=== PATIENT | male | born 1950 | race Caucasian/White ===

== ENCOUNTER → 2016-02-29 | Outpatient (CLI) | payer OTHER ==
[~2016-02-29] MED LIST: ASPI81TA28 PO; CALC500C70 PO; CHOL100027 PO; DGRI80 IM; LPT10 PO; METO25TA56 PO; TADA10TA PO; VITA1CAP4 PO; vitamin
[2016-02-29 19:19] LABS: BLOOD UREA NITROGEN 19 mg/dl (7-18); BUN/CREATININE RATIO 18.6 (10-20)
[2016-02-29 19:23] LABS: PROSTATE SPECIFIC ANTIGEN 0.041 ng/ml (0.000-4.000)
--- NOTE | 2016-03-04 11:28 | CODING QUERY MEDICAL NECESSITY ---
SUPPORTING DIAGNOSIS NEEDED A supporting diagnosis is required for the test/procedure performed on this patient in order for us to be reimbursed by the patient's insurance. Please provide a supporting diagnosis for the following test/procedure listed below next to the test name along with your signature. *If there is no additional diagnosis for this patient that would support the following test/procedure please document that below next to the test/procedure. Test(s)/Procedure(s) that require a supporting diagnosis: DOS 02/28 * PSA DIAGNOSIS: Provider Signature: Date: Thank you Suzy Abreu Health Information Management Once completed, please kindly fax back to [phone] For questions please call [phone]
== END | disposition home or self-care (01) ==
LOC: C.LAB 17:10
PROVIDERS: ATTEND Urology
DX: Z11.59 Encounter for screening for other viral diseases (principal); N43.40 Spermatocele of epididymis, unspecified; C61 Malignant neoplasm of prostate

== ENCOUNTER → 2016-04-21 | Outpatient (CLI) | payer OTHER ==
[2016-04-21 11:08] LABS: BASO % 0.8 %; BASO ABS # 0.03 K/uL (0-0.2); COMPLETE YES; EOS % 2.1 %; HEMATOCRIT 41.1 % (42-52); LYMPH % 28.6 %; LYMPH ABS # 1.11 K/uL (1.2-3.4); MEAN CELL VOLUME 87.4 fL (80-100); MEAN CORPUSCULAR HEMOGLOBIN 30.4 pg (25-34); MEAN CORPUSCULAR HGB CONC 34.8 g/dl (32-36); MEAN PLATELET VOLUME 10.9 fL (7.4-10.4); MONO % 13.7 %; NEUT % 54.8 %; PLATELET COUNT 213 K/uL (130-400); WHITE BLOOD COUNT 3.88 K/uL (4.8-10.8)
[2016-04-21 12:06] LABS: BLOOD UREA NITROGEN 14 mg/dl (7-18); BUN/CREATININE RATIO 11.6 (10-20)
[2016-04-21 12:07] LABS: PROSTATE SPECIFIC ANTIGEN 0.045 ng/ml (0.000-4.000)
[2016-04-21 12:08] LABS: BLOOD UREA NITROGEN 14 mg/dl (7-18); BUN/CREATININE RATIO 11.3 (10-20); CALCIUM 9.4 mg/dl (8.5-10.1); CARBON DIOXIDE 28 mmol/L (21-32); CHLORIDE 103 mmol/L (98-107); CHOLESTEROL 173 mg/dl (0-200); GLUCOSE 86 mg/dl (70-99); POTASSIUM 4.4 mmol/L (3.5-5.1); SODIUM 139 mmol/L (136-145)
[2016-04-21 12:19] LABS: ALB/GLOB RATIO 1.1 (0.9-2); ALKALINE PHOSPHATASE 70 U/L (45-117); ALT/SGPT 29 U/L (12-78); AST/SGOT 24 U/L (15-37); CHOLESTEROL/HDL RATIO 2.9; HDL CHOLESTEROL 60 mg/dl; LDL CHOLESTEROL CALCULATED 95 mg/dl; TRIGLYCERIDES 91 mg/dl (0-150); VERY LOW DENSITY LIPOPROT CALC 18 mg/dl
== END | disposition home or self-care (01) ==
LOC: C.LAB 09:52
PROVIDERS: ATTEND Urology
DX: E78.5 Hyperlipidemia, unspecified (principal); C61 Malignant neoplasm of prostate

== ENCOUNTER → 2016-07-28 | Outpatient (CLI) | payer OTHER ==
[2016-07-28 17:15] LABS: BLOOD UREA NITROGEN 18 mg/dl (7-18); BUN/CREATININE RATIO 15.1 (10-20)
[2016-07-28 17:19] LABS: PROSTATE SPECIFIC ANTIGEN 0.078 ng/ml (0.000-4.000)
--- NOTE | 2016-08-01 12:41 | CODING QUERY MEDICAL NECESSITY ---
SUPPORTING DIAGNOSIS NEEDED Dr. Jaffe, A supporting diagnosis is required for the test/procedure performed on this patient in order for us to be reimbursed by the patient's insurance. Please provide a supporting diagnosis for the following test/procedure listed below next to the test name along with your signature. *If there is no additional diagnosis for this patient that would support the following test/procedure please document that below next to the test/procedure. Test(s)/Procedure(s) that require a supporting diagnosis: * [id number] PSA DIAGNOSIS: DATE OF SERVICE: 07/28/16 Provider Signature: Date: Thank you Ramone Tirado [facility] Information Management Once completed, please kindly fax back to [phone] For questions please call [phone]
== END | disposition home or self-care (01) ==
LOC: C.LAB 15:49
PROVIDERS: ATTEND Urology
DX: N52.9 Male erectile dysfunction, unspecified (principal); C61 Malignant neoplasm of prostate

== ENCOUNTER → 2017-01-05 | Outpatient (CLI) | payer OTHER ==
[~2017-01-05] MED LIST changes: -vitamin
[2017-01-05 17:08] LABS: BLOOD UREA NITROGEN 24 mg/dl (7-18); BUN/CREATININE RATIO 18.2 (10-20)
[2017-01-05 17:12] LABS: PROSTATE SPECIFIC ANTIGEN < 0.010 ng/ml (0.000-4.000)
== END | disposition home or self-care (01) ==
LOC: C.LAB 15:09
PROVIDERS: ATTEND Urology
DX: N52.9 Male erectile dysfunction, unspecified (principal)

== ENCOUNTER → 2017-03-31 | Outpatient (CLI) | payer OTHER | END | disposition home or self-care (01) | LOC: C.LAB 11:59 | PROVIDERS: ATTEND Urology | DX: C61 Malignant neoplasm of prostate (principal) ==

== ENCOUNTER → 2017-04-02 | Outpatient (CLI) | payer OTHER ==
[2017-04-02 13:41] VITALS: BP 107/71; PULSE 62; TEMP 36.6; O2SAT 95
--- NOTE | 2017-04-02 16:34 | Radiation Oncology Follow-Up ---
Radiation Oncology Follow-Up Date of Visit Apr 02, 2017. Reason For Visit 6 month follow-up and cancer survivorship care plan Radiation Completion Date 10/14/16 Diagnosis (1) Prostate CA Status: Acute Onset Date: 01/24/2015 Location: both lobes of the prostate Histology Subtype: adenocarcinoma Stage: lll Permanent Comment: Rising PSA, clinical stage T1c, pretreatment PSA 12.3 Status post ultrasound-guided biopsy 01/24/2015 revealing adenocarcinoma Garth 3+4, 4+3 and 4+4 Status post robotic prostatectomy 04/17/2015 2 separate tumors on the left 4+4 and on the right 3+3 Seminal vesicle invasion, perineural invasion, and extraprostatic extension left posterior base Stage pT3 pN0 M0 Post prostatectomy rising PSA 0.078 Initiation of Firmagon 120 mg 07/30/2016, 4-6 month recommendation Status post completion of IMRT/IGRT VMAT radiation therapy 10/14/2016. He received 6840 cGy Last Edited By: Shante Anderson on Oct 22, 2016 08:15 History of Present Illness Mr. Rondon is without a family history of prostate cancer. He is been followed with screening prostatespecific antigens. These were under 1 until 2011 with a reading of 2.0 to. In 04/20/2012 the prostate-specific antigen jumped to 5.78. This was repeated on 05/19/2012 at 4.71. Because of persistent prostate-specific antigen elevation Dr. Jaffe suggested ultrasound-guided biopsies. These biopsies were performed on . A total of 14 biopsies were taken and all were benign. Case: [id number]. Patient continued to have follow-up prostate-specific antigens. On 12/03/2012 the prostate-specific antigen increased to 6.19. This was double checked on 01/10/2013 and remained elevated at 5.96. On 07/01/2013 the prostate-specific antigen was 5.89. On 05/16 prostate-specific antigen once again jumped to 8.9 to and finally on 12/16/2014 the prostate-specific antigen was 12.3. Patient had a second ultrasoundguided biopsy on 01/24/2015. Again a total of 14 biopsies were taken that include the left and right base, left and right mid gland and left right apex. One biopsy each from the left and right anterior were taken. Biopsies from the right base, right mid, right apex, right anterior and left anterior were all benign. One of 2 biopsies in the left base were positive for adenocarcinoma [place] grade 4+3 involving 50% of the core sample with no perineural invasion seen. 2 biopsies from the left mid gland were positive. One was positive within at no carcinoma [place] grade 4+3 involving 15% of the core sample and the second was positive with a [place] score 3+4 involving 60% of the core sample. No perineural invasion was seen. 2 biopsies from the left apex were positive. One with a [place] grade 4+4 involving 40% of the core sample and a second Garth grade 4+3 involving 75% of core sample. No perineural infiltration was seen. Therefore wall a total of 5 biopsies out of 14 positive all on the left. One was [place] grade 3+4. 3 were Garth grade 4+3 and 1 was Garth grade 4+4. Case: [id number]. Patient underwent a staging workup. This consisted have a whole-body bone scan on 02/07/2015. There was no evidence of skeletal metastatic disease. He also underwent a CT scan of the abdomen and pelvis on 02/07/2015. This revealed multiple bilateral inguinal surgical clips. A stable 8 mm sclerotic focus was noted within the proximal right femur likely a bone island. There were few bilateral renal hypodense lesions the majority subcentimeter in size. The largest was in the left kidney measuring 1.7 cm that was stable. There was no evidence of retroperitoneal or pelvic lymphadenopathy. There was evidence of a heterogeneous and mildly enlarged prostate gland but no evidence of extra prostatic extension appreciated. Patient discussed the findings of his biopsy with Dr. Jaffe. He is scheduled to return to see him on March 02 to discuss the role of robotic prostatectomy. We were asked to see the patient in referral today to discuss the role of definitive radiation. The patient went on to have a robotic prostatectomy on 04/17/2015. Pathology revealed 2 separate tumors. Tumor #1 adenocarcinoma Garth score 4+4. This was on the left side of the prostate. Tumor #2 adenocarcinoma with a Garth score 3+3. This is on the right side of the prostate. There was extraprostatic extension at the left posterior base. There was seminal vesicle invasion. All margins were negative. There was no lymphovascular invasion. He did have perineural invasion. His AJCC pathologic staging was pT3b pN0. He's been followed closely since his prostatectomy. He has had a steady improvement in his urination. PSAs have been followed. June 06, 2015 PSA was 0.020. On 08/09/2015 the PSA was 0.012. On 12/03/2015 the PSA was 0.016. On 02/29/2016 the PSA was 0.041. With this finding she was referred to our office discuss radiation therapy. He underwent radiation therapy. This was completed 10/14/2016. He received 6840 cGy utilizing IMRT/IGRT, VMAT. Interim History He is been doing well over the past 6 months. Urinary status is stable. He gave an AUA score of 4. He completed an expanded prostate cancer index composite for clinical practice and gave a score of 0 of 12 and urinary incontinence symptoms. He gave a score of one of 12 and urinary irritation. He gave a score of 0 of 12 and bowel symptoms. He gave a score of 6 of 12 and sexual symptoms. He gave a score of 6 of 12 in hormonal vitality symptoms. His total was 13 of 60. He had a recheck PSA 03/31/2017. In that was less than 0.010. Allergies Coded Allergies: No Known Allergies (Unverified , 01/15/16) Home Medications Scheduled Aspirin (Aspirin Ec), 81 MG PO QAM Atorvastatin (Lipitor), 10 MG PO QAM Calcium/Vitamin D (Os-Cody 500 Plus D), 1 TAB PO DAILY Cholecalciferol (Vitamin D 1000 Unit), 1,000 INTER.UNIT PO DAILY Tadalafil (Cialis), 5 MG PO DAILY Vitamin E (E 1000), 1 CAP PO DAILY Scheduled PRN Metoprolol Tartrate (Lopressor) (Lopressor), 25 MG PO BID PRN for ATRIAL FLUTTER Review of Systems Gastrointestinal: Symptoms: WNL Respiratory: Symptoms: WNL Urinary: Comments: occasional weak stream Skin: Symptoms: No Problems Physical Exam Vital Signs Date Time Temp Pulse Resp B/P (MAP) Pulse Ox O2 Delivery O2 Flow Rate FiO2 04/02/17 13:41 36.6 62 16 107/71 95 Fatigue: None General Appearance: no apparent distress Eyes: normal inspection, EOMI ENT: normal ENT inspection, hearing grossly normal Respiratory/Chest: lungs clear, no respiratory distress, no accessory muscle use Cardiovascular: regular rate, rhythm, no gallop, no murmur Abdomen: non tender, soft Extremities: no pedal edema Neurologic/Psychiatric: no motor/sensory deficits, alert, normal mood/affect Skin: warm/dry Lymphatic: no adenopathy Pain Management Patient Reports Pain: No Pain Location: Breast Patient Preferred Pain Scale: 0 - 10 Initial Pain Intensity: 0.0 Pain Management Plan He gave a pain level of 0 therefore requires no pain management. Laboratory Laboratory Results: were reviewed, and pertinent findings noted in HPI Laboratory Comments: Reviewed in the interim history. Pathology Pathology Results: not applicable Imaging Imaging Studies: not applicable Assessment & Plan Plan: Continue regular follow-up with Dr. Jaffe. She has a recheck appointment with him in July. An order was given for him to have a PSA with our office in January. He'll have a follow-up visit following the PSA. Today he brought information to review in regards to possible biochemical failure after salvage radiation therapy. He had done several calculations and looked of 5 different studies. The end result is a 50% possibility of recurrence. We discussed the need for continued surveillance. He'll have a PSA in July. He is pleased that currently the PSA levels are low. He is concern in the event of the rise in the PSA. We discussed that treatment would be hormone suppression. He had multiple side effects to the medication and is concerned that he would have difficulty tolerating hormone suppression. For now we'll continue to follow the PSAs which have been excellent. Total Time In Follow-Up I spent 25 minutes speaking to the patient performing examination. I spent 15 minutes reviewing information in completing this note. Copy To Bertin Cooper M.D.; Sandeep Jaffe MD, Urology
== END | disposition home or self-care (01) ==
LOC: C.ONC 13:28
PROVIDERS: ATTEND Urology
DX: Z08 Encounter for follow-up examination after completed treatment for malignant neoplasm (principal); Z92.3 Personal history of irradiation; Z85.46 Personal history of malignant neoplasm of prostate

== ENCOUNTER → 2017-05-26 | Outpatient (CLI) | payer OTHER ==
[~2017-05-26] MED LIST changes: -DGRI80 IM
[2017-05-26 12:30] LABS: ALBUMIN 3.6 gm/dl (3.4-5.0); ALT/SGPT 24 U/L (12-78); AST/SGOT 23 U/L (15-37); BLOOD UREA NITROGEN 16 mg/dl (7-18); CALCIUM 9.1 mg/dl (8.5-10.1); CARBON DIOXIDE 27 mmol/L (21-32); CREATININE 0.96 mg/dl (0.60-1.40); GLUCOSE 81 mg/dl (70-99); POTASSIUM 4.2 mmol/L (3.5-5.1); SODIUM 138 mmol/L (136-145)
[2017-05-26 12:41] LABS: ALKALINE PHOSPHATASE 95 U/L (45-117); CHOLESTEROL 163 mg/dl (0-200); LDL CHOLESTEROL CALCULATED 96 mg/dl
== END | disposition home or self-care (01) ==
LOC: C.LAB 10:09
PROVIDERS: ATTEND Internal Medicine Geriatric Medicine
DX: E78.5 Hyperlipidemia, unspecified (principal); N52.9 Male erectile dysfunction, unspecified; C61 Malignant neoplasm of prostate; I48.92 Unspecified atrial flutter

== ENCOUNTER → 2017-06-30 | Outpatient (CLI) | payer OTHER | END | disposition home or self-care (01) | LOC: C.MAMM 07:51 | PROVIDERS: ATTEND Internal Medicine Geriatric Medicine | DX: M81.0 Age-related osteoporosis without current pathological fracture (principal); C61 Malignant neoplasm of prostate ==

== ENCOUNTER → 2017-09-15 | Outpatient (CLI) | payer OTHER ==
[2017-09-15 19:22] LABS: BLOOD UREA NITROGEN 24 mg/dl (7-18); CREATININE 1.21 mg/dl (0.60-1.40)
== END | disposition home or self-care (01) ==
LOC: C.LAB 17:58
PROVIDERS: ATTEND Urology
DX: N52.9 Male erectile dysfunction, unspecified (principal)

== ENCOUNTER 2024-01-20 05:15 | Observation (INO) ==
--- NOTE | 2023-12-08 12:09 | PAT Medication Instructions ---
Medication Instructions Date of Service December 08, 2023 Home Medications Medication Instructions Recorded alendronate 70 mg tablet See Rx Instructions .Route 11/17/22 .COMPLEX #12 tabs atorvastatin 10 mg tablet 10 mg PO QAM #90 tabs 12/03/23 cholecalciferol (vitamin D3) 25 mcg (1,000 unit) tablet 1,000 unit PO QAM calcium carbonate (Calcium 600) 600 mg PO QAM alendronate 70 mg tablet See Rx Instructions metoprolol succinate 25 mg tablet,extended release 24 hr 25 mg PO QAM atorvastatin 10 mg tablet 10 mg PO QAM apixaban 5 mg tablet (Eliquis) 5 mg PO BID ASK your prescriber and surgeon apixaban 5 mg tablet (Eliquis) 5 mg PO BID (in order to get spinal anesthesia- will need to hold Eliquis/apixaban at least 72 hours prior to surgery) alendronate 70 mg tablet See Rx Instructions DO NOT take the morning of surgery cholecalciferol (vitamin D3) 25 mcg (1,000 unit) tablet 1,000 unit PO QAM calcium carbonate (Calcium 600) 600 mg PO QAM Take morning of surgery With a small sip of water, OTHERWISE NOTHING TO EAT OR DRINK AFTER MIDNIGHT: metoprolol succinate 25 mg tablet,extended release 24 hr 25 mg PO QAM atorvastatin 10 mg tablet 10 mg PO QAM Other Notes If you have any questions please call us at [phone] or [phone] or [phone] or [phone]
--- NOTE | 2023-12-14 08:26 | Anesthesiology Consultation ---
Date of Service December 14, 2023 Assessment & Plan (1) Encounter for pre-operative examination: - apixaban instructions: patient instructed he will need to contact prescribing provider to check if he can hold apixaban for 3 days to receive neuraxial anesthesia. - cardiology office visit 11/16/23: "...aortic root and ascending aorta dilation along with moderate aortic valve regurgitation...scheduled to undergo left total knee replacement...no active cardiac symptoms...no current indication for intervention and recommended continued surveillance...acceptable cardiac risk for planned left total knee replacement and apixaban can be held for 2 days prior to surgery...follow up in 1 year..." - Outpatient joint assessment: Patient is currently scheduled for inpatient pathway. If re-evaluated and patient/surgeon requests outpatient pathway, patient is not ideal candidate for outpatient joint program from anesthesia standpoint. Chart Review Chart Review: Acceptable Risk for Surgery and Patient seen in Pre Admission Testing Teaching & Discussion Pre-Anesthesia Teaching/Discussion Notes: Instructed NPO after midnight before surgery, except medications with 15 cc of water. Medication instructions provided according to the PAT guidelines. History Surgery Operation Date: 01/12/24 07:00 Proposed Procedures p Left Total Knee Arthroplasty - Pipo Arguello MD Height/Weight Height: 6 ft Weight: 74.7 kg Allergies Allergy/AdvReac Type Severity Reaction Status Date / Time Antisera AdvReac Intermediate Swelling/It Verified 12/08/23 07:36 mendy Medications Home Medications Medication Instructions Recorded Confirmed Last Taken cholecalciferol (vitamin D3) 25 1,000 unit PO QAM 03/28/18 12/08/23 08/20/18 mcg (1,000 unit) tablet calcium carbonate (Calcium 600) 600 mg PO QAM 08/20/18 12/08/23 08/20/18 metoprolol succinate 25 mg 25 mg PO QAM 08/24/23 12/08/23 Unknown tablet,extended release 24 hr atorvastatin 10 mg tablet 10 mg PO QAM #90 tabs 12/03/23 12/08/23 Unknown apixaban 5 mg tablet (Eliquis) 5 mg PO BID 12/08/23 12/08/23 Unknown Additional Notes: On drug holiday from alendronate. Past Medical History Medical History (Updated 12/14/23 @ 08:47 by Bonnie M. Onink, PA-C) Aortic insufficiency Ascending aorta dilation [facility] Atrial flutter, paroxysmal hx - ablation [facility] Bilateral tinnitus Dupuytrens contracture History of prostate cancer surgery xrt HTN (hypertension) controlled, stable per pt Hyperlipemia Left knee DJD Mitral regurgitation [facility] Osteoarthritis Sensorineural hearing loss (SNHL) of both ears Varicose veins of legs Patient denies h/o stroke, seizures, heart attack, heart failure, DM, blood clots/DVTs or blood transfusions. Exercise / Class Metabolic Activity II 4-5 Yardwork/Stairs/Walk up hill (denies chest discomfort or shortness of breath with one flight of stairs) Past Family History Family History Brother Non-Hodgkin lymphoma Heart disease Myocardial infarction Father Heart disease Myocardial infarction Mother COPD (chronic obstructive pulmonary disease) Lung cancer Sister Heart disease Myocardial infarction Denies family history of Ovarian cancer Prostate cancer Breast cancer Colorectal cancer Past Surgical History Surgical History (Updated 12/14/23 @ 08:24 by Bonnie Vidales PA-C) History of cardiac radiofrequency ablation (~01/2022) History of colonoscopy 05/2016 repeat 10 yrs History of prostatectomy for cancer, had XRT Hx of inguinal hernia repair Hx of tonsillectomy S/P ORIF (open reduction internal fixation) fracture left humeral fracture Past Anesthesia History No Hx of Anesthesia Complications and No Family Hx of Anesthesia Complications History of PONV No Hx of PONV and No Hx of Motion Sickness Social History Smoking Status: Never smoker Do You Dip or Chew Tobacco: No Hx Alcohol Use: Yes Alcohol type: beer alcohol intake frequency: 0-2 drinks per day Hx Substance Use: Yes substance use type: marijuana (-advised) Last Used Substance: Unknown Last Used Substance Other:: Advised Review of Systems Snoring, denies witnessed apneas. Patient denies chest pain, shortness of breath, dyspnea on exertion, reflux, fever, chills, cough, wheezing, or palpitations. Physical Exam Vital Signs Vitals BP 102/68 P 64 TEMP 97.7 SP02 98% on RA RESP 18 Physical Patient resting comfortably in chair in no acute distress, alert and oriented, responding appropriately throughout visit Full cervical extension range of motion without pain TMD 3.5 finger breadths Mallampati Score 2 Dentition: several caps/crowns, denies chipped or loose teeth, implants or bridges Lungs: normal respiratory effort. Good air movement, clear throughout to auscultation, no adventitious breath sounds Cardiac: regular rate and rhythm, no murmurs noted Carotid arteries: negative bruit bilat Lab Results Anesthesia Preop Results Results Anesthesia Widget: WBC 4.11 K/ul (4.8-10.8) L 12/14/23 Hgb 12.2 g/dl (14.0-18.0) L 12/14/23 Hct 35.8 % (42.0-52.0) L 12/14/23 Plt 196 K/uL (130-400) 12/14/23 Na 137 mmol/L (136-145) 12/14/23 K 3.7 mmol/L (3.5-5.1) 12/14/23 Cl 103 mmol/L (98-107) 12/14/23 CO2 28 mmol/L (21-32) 12/14/23 BUN 21 mg/dl (6-23) 12/14/23 Creat 1.04 mg/dl (0.6-1.4) 12/14/23 Glucose Level 75 mg/dl (70-99(Fasting)) 12/14/23 PT 10.6 Seconds (9.0-12.0) 12/14/23 PTT 28 Seconds (21-31) 12/14/23 INR 1.0 (0.9-1.1) 12/14/23 Blood Type A Positive 12/14/23 Antibody Screen NEGATIVE 12/14/23 Testing Electrocardiogram Date: 12/14/23 NSR, rate 60 bpm Chest X-Ray Date: 12/14/23 No acute process. Echocardiogram Date: 11/16/23 EF 63% Normal LV wall motion Aorta dilated with a maximal dimension of 4.6 cm Moderate aortic valve regurgitation Mild mitral regurgitation Mild pulmonic regurgitation Other Testing PET scan 03/11/23 1. Prior prostatectomy with bilateral inguinal keyana dissection. 2. No pathologically enlarged lymph nodes or suspicious tracer uptake identified to suggest recurrent disease. 3. Lingular and right middle lobe mucous plugging with tree-in-bud nodules suggestive of a nonspecific infectious or inflammatory pneumonitis such as Mycobacterium avium. 4. Fusiform aneurysmal dilation of the ascending thoracic aorta, 4.7 cm. 5. Incidental findings as above.
--- NOTE | 2024-01-16 10:50 | History & Physical Report ---
Date of Service January 16, 2024 Assessment & Plan (1) Left knee DJD: 73-year-old male avid biker with advanced left knee DJD. He has failed conservative treatment. He now like to proceed with left knee replacement. Plan: Working to take him to the operating room and do a left knee replacement. The risks of Mente this procedure were explained. He knows to hold his Eliquis 3 days preop. He is planned to be discharged to home using home health. Will start him back on his Eliquis 24 hours postop. (2) Paroxysmal atrial fibrillation: (3) Prostate CA: (4) HTN (hypertension): (5) History of prostate cancer: History of Present Illness Chief Complaint: . Persistent left knee pain and discomfort. Primary Care Provider: Harley Rizvi DO . The patient is a 73-year-old gentleman who I been following for the past couple years for left knee arthritis. He has been through extensive conservative treatment over the years which have become less successful over time. Pain has become more debilitating. He is an avid biker and having difficulty maintaining his biking due to the pain. Describes global pain in the knee. Increased with walking. No groin pain. Last shots did not help much. Allergies Allergy/AdvReac Type Severity Reaction Status Date / Time Antisera AdvReac Intermediate Swelling/It Verified 12/08/23 07:36 mendy Home Medications Medication Instructions Recorded Confirmed Type cholecalciferol (vitamin D3) 25 1,000 unit PO QAM 03/28/18 12/08/23 History mcg (1,000 unit) tablet calcium carbonate (Calcium 600) 600 mg PO QAM 08/20/18 12/08/23 History metoprolol succinate 25 mg 25 mg PO QAM 08/24/23 12/08/23 History tablet,extended release 24 hr atorvastatin 10 mg tablet 10 mg PO QAM #90 tabs 12/03/23 12/08/23 Rx apixaban 5 mg tablet (Eliquis) 5 mg PO BID 12/08/23 12/08/23 History Past Med/Surg History Problem List Ganglion cyst of finger of right hand Abnormal CT scan of lung Gross hematuria 07/11/22 Hyperlipidemia History of prostate cancer Ascending aorta dilatation Left knee DJD Paroxysmal atrial fibrillation Impotence, organic (Acute) Mitral regurgitation (Acute) Osteoarthritis (Acute) Osteoporosis (Acute) 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) Prostate CA (01/24/15) HTN (hypertension) (Chronic) Medical History Aortic insufficiency Osteoarthritis Ascending aorta dilation [facility] Left knee DJD History of prostate cancer surgery xrt Mitral regurgitation [facility] Hyperlipemia HTN (hypertension) controlled, stable per pt Bilateral tinnitus Sensorineural hearing loss (SNHL) of both ears Dupuytrens contracture Varicose veins of legs Atrial flutter, paroxysmal hx - ablation [facility] Surgical History Hx of tonsillectomy Hx of inguinal hernia repair History of cardiac radiofrequency ablation (~01/2022) S/P ORIF (open reduction internal fixation) fracture left humeral fracture History of colonoscopy 05/2016 repeat 10 yrs History of prostatectomy for cancer, had XRT Family History Brother Non-Hodgkin lymphoma Heart disease Myocardial infarction Father Heart disease Myocardial infarction Mother COPD (chronic obstructive pulmonary disease) Lung cancer Sister Heart disease Myocardial infarction Denies family history of Ovarian cancer Prostate cancer Breast cancer Colorectal cancer Social History Smoking Status: Never smoker Second Hand Exposure: No; Do You Dip or Chew Tobacco: No; Tobacco Cessation Education Requested by Patient: No Hx Alcohol Use: Yes Alcohol type: beer Alcohol Intake Frequency: 4 or More x per/Week Hx Substance Use: Yes Last Used Substance: Unknown Last Used Substance Other:: Advised Preferred Language: [place] Communication Ability: Effective Visual Impairment: Limited Hearing Ability: Normal Manager Printing Required: No Beliefs That Will Affect Care: None marital status: Current Living Situation: Spouse current occupational status: retired How many Children do You have: 2 Other Information That Helps Us Care for You: No Feels Safe at Home: Yes Safety Concerns: Feels Safe At This Time Childhood Exposure to Second-Hand Smoke: Yes Diet: regular caffeine: Yes Dental Care, Regularly: Yes Physical Activity Frequency: 3-4 Times per Week Seatbelt Use: always Sunscreen Use: Yes Do you think of yourself as: straight/heterosexual Assistive Devices: Glasses Review of Systems All systems reviewed & are unremarkable except as noted in HPI & below. Physical Exam . Physical examination reveals a pleasant healthy-appearing middle-age male. Examination of the left knee reveal patient ambulates independently. Fairly minimal limp. Got varus alignment to his knee. Tender over the medial joint line. He is got some bony hypertrophy medially. Range of motion about 5 degrees short of full extension to 125 years of flexion. No particular pain with hip motion. There is no instability. Constitutional WD/WN, vitals as above Neck trachea midline, no thyromegaly Respiratory normal respiratory effort, lungs clear to auscultation Cardiovascular RRR, no murmur, no edema Gastrointestinal (Abdomen) normal bowel sounds, soft, nontender, no hepatosplenomegaly Results & Data Results & Data Laboratory Results . Diagnostic Findings . X-rays of the left knee were reviewed. Shows advanced medial compartment arthritis. Is got complete loss of medial joint space on the 40 degree flexion films. PG Care Time/CCT Total # of Minutes Spent Total Time Spent with Patient: Total time spent is greater than 50% in coordination of care (as documented) at patient's floor/unit and/or counseling patient: Coding Level of Care Code None Diagnoses Left knee DJD M17.12 Paroxysmal atrial fibrillation I48.0 Prostate CA C61 HTN (hypertension) I10 History of prostate cancer Z85.46
[2024-01-20] MEDS: LR 500ML BOLUS, THEN 15ML/HR IV SCH (06:00)
[2024-01-20] MEDS: ACETAMINOPHEN 500 MG TAB PO SCH ×2 (06:21→14:02)
[2024-01-20] MEDS: LR 60ML/HR IV SCH (06:21)
[2024-01-20] MEDS ORDERED: BUPIVACAINE 0.5 % 5 MG/1 ML PF 10ML VIAL ONE (06:21)
[2024-01-20] MEDS: CeleBREX 200 MG CAP PO SCH (06:21)
[2024-01-20] MEDS: METOCLOPRAMIDE HCL 10 MG TABLET PO SCH (06:21)
[2024-01-20] MEDS ORDERED: BUPIVACAINE 0.25% PF 30 ML VIAL ONE (06:21)
[2024-01-20] MEDS: FAMOTIDINE 20 MG TAB PO SCH (06:21)
[2024-01-20] MEDS: dexAMETHasone**PF** 10 MG/ML VIAL IV SCH (06:22)
[2024-01-20] MEDS ORDERED: MIDAZOLAM HCL 1 MG/ML 2ML VIAL ONE ×2 (06:43)
[2024-01-20] MEDS ORDERED: LIDOCAINE 2% 2 ML VIAL/AMP(20MG/ML) INFIL ONE (06:43)
[2024-01-20] MEDS ORDERED: PROPOFOL IV EMULSION 10 MG/ML 20 ML VIAL IV ONE (06:43)
--- NOTE | 2024-01-20 06:45 | History & Physical Bridge Note ---
Date of Service January 20, 2024 History & Physical Bridge Note I have examined the patient, reviewed the History & Physical and in the interval since the performance of the History & Physical I have noted the following changes of clinical significance: no changes noted
[2024-01-20] MEDS: ceFAZolin 2000MG 2,000 MG/15 ML SYR IV SCH (06:59)
[2024-01-20] MEDS ORDERED: ATROPINE SULFATE 0.1 MG/ML 10ML SYR IV PRN (07:14)
[2024-01-20] MEDS ORDERED: ePHEDrine sulfate 50 MG/ML AMP IV PRN (07:14)
[2024-01-20] MEDS ORDERED: ONDANSETRON INJ 2 MG/ML 2 ML VIAL IV PRN ×2 (07:14→10:12)
[2024-01-20] MEDS ORDERED: fentaNYL citrate PF 100 MCG/2 ML VIAL IV PRN (07:14)
[2024-01-20] MEDS ORDERED: PHENYLEPHRINE 100MCG/ML 5ML SYR ONE (07:28)
[2024-01-20] MEDS: ORTHO JOINT ANESTHETIC ONE (07:36)
[2024-01-20] MEDS: ROPIV 0.5% 246mg, Ketorolac 30mg, EPINEPHrine 0.5mg in NSS INFIL SCH (07:37)
[2024-01-20] MEDS ORDERED: GLYCOPYRROLATE 0.2 MG/ML VIAL ONE (07:51)
[2024-01-20] MEDS: TRANEXAMIC ACID 1,000 MG **IV Intra-op IV SCH (07:53)
[2024-01-20] MEDS ORDERED: ePHEDrine sulfate 50 MG/5 ML SYR ONE (08:53)
--- NOTE | 2024-01-20 09:09 | Operative Report ---
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 He extensive grade 4 [id number] disease and eburnation of the entire medial compartment. He had a varus deformity to his knee. Moderate-sized joint effusion. Specimens Left knee sent for pathology. Anesthesia Type Spinal MAC Complications none Disposition Accompanied Patient To Recovery: No Indications Patient is a 73-year-old fairly active gentleman whose had a long history of left knee pain discomfort is gotten worse over the past 5 years. He has been through extensive conservative treatment which became less successful over time. His pain was limiting his lifestyle and he elected proceed with total knee arthroplasty. Description of Procedure Operative implants consists of: 1. Biomet Vanguard size 75 left posterior stabilized femoral component. 2. Biomet size 83 tibial tray. 3. 12 mm posterior stabilized polyethylene insert. 4. 34 x 8-1/2 all poly patella. The patient was taken to the op room, identified, placed on the operative table in the supine position. All conductors were appropriately padded. IV antibiotics tried by anesthesia team. A spinal anesthetic and adductor canal block had been Weida in the holding area. A left thigh turn was then placed. The left lower extremity was then prepped and draped in usual sterile fashion. The left leg was elevated and exsanguinated with use of an Esmarch and the turn was placed at 300 mmHg. An anterior approach left knee was then performed to longitudinal incision centered over the patella. Sharp dissection was Through subcutaneous tissue down to the extensor mechanism. A medial parapatellar arthrotomy incision was made. Some subperiosteal dissection was carried out medially. The fat pad was resected beneath patella tendon. The lateral patellofemoral ligament was released. Patella subluxated laterally knee was flexed. The osteophytes taken off distal femur. The ACL and PCL were then released from distal femur and the tibia subluxate anteriorly. The external treatment LYMErix was then placed on the anterior face the tibia and adjusted 14 mm medially. The proximal tibial cut was made remove out of millimeter bone from the most efficient aspect medial tibial plateau. Some osteophytes taken off medially. The tibia sized to a size 83. Attention was then drawn to the femur. The distal femur tendon with a sharp drill. Intramedullary canal was suction. A left 6 degree valgus cutting guide was placed. The distal femoral cutting block was pinned in place. Distal femoral cut was made to take an additional 3 mm of bone off distal femur. The femur was then sized to a size 75. The AP cutting block was pinned parallel to the epicondylar axis which was 4 degrees of external rotation. The anterior cut, anterior chamfer, posterior cut, posterior chamfer cuts were made. The box cutting guide was placed and adjusted slightly lateral and the box cut was made. The knee was flexed. The remnants of the medial and lateral menisci were excised. The osteophytes taken off the posterior aspect the femur. A trial femoral component was placed. The tibial tray was pinned in Rhonda external rotation and the drill and stem point to use great defect in proximal tibia for the tibial tray. Knee was then trialed and the 12 mm insert fit most appropriately. Attention drawn the patella. The patella was cleaned of all soft tissues. Patella thickness measured 25 mm in thickness was cut down to 14. It was sized to a size 34 patella. The lug holes were drilled for the 34 patella. The lateral osteophytes removed. Patella button was placed. Knee was taken through range of motion patella tracked nicely with no thumbs test. Attention was then drawn toward placing the permanent components. All trial components were removed. A bone plug was placed in the distal femur limit blood loss. A double batch of Palacos G cement was mixed. A Biomet Vanguard size 75 right posterior stabilized femoral component, a size 83 tibial tray, a 12 mm posterior Byce polyethylene insert, and a 34 x 8 and half all poly patella then cemented in place. The knee was brought out into full extension until the cement hardened. Final cement check was performed. The pericapsular tissues were injected with total of 100 cc of Ortho mix. Patient did receive 1 g tranexamic acid. The tourniquet was let down for final tourniquet time of 62 minutes. Hemostasis assured use electrocautery. Extensor Meclomen closed with combination 1 PDS suture #1 Vicryl suture in a [id number] fashion. Extensor Meclomen checked and found to be intact. The subcutaneous tissues then closed with 2 Dexon suture in a buried interrupted fashion and the skin was closed with skin mi. Leg was then cleaned and dried and a sterile dressing was Xeroform, 4 x 4's, sterile ABD pads, sterile cast padding, Jason bandage were applied. Patient then transferred to the recovery room in stable condition. Patient tolerated the procedure well and there were no complications. I attest to the content of the Intraoperative Record and any orders documented therein. Any exceptions are noted below.
[2024-01-20] MEDS ORDERED: ALUMINUM/MAGNESIUM SUSP 30 ML UDC PO PRN (10:12)
[2024-01-20] MEDS ORDERED: HYDROmorphone INJ 0.5 MG/0.5 ML SYR IV PRN (10:12)
[2024-01-20] MEDS ORDERED: METOCLOPRAMIDE HCL INJ 5 MG/ML 2 ML VIAL IV PRN (10:12)
[2024-01-20] MEDS ORDERED: NALOXONE HCL 0.4 MG/1 ML VIAL/CARP IV PRN (10:12)
[2024-01-20] MEDS ORDERED: bisacodyL 10 MG SUPP PR PRN (10:12)
[2024-01-20] MEDS ORDERED: MAGNESIUM HYDROXIDE SUSP 30 ML UDC PO PRN (10:12)
--- NOTE | 2024-01-20 10:33 | Anesthesiology Progress Note ---
Date of Service January 20, 2024 Anesthesia Post Procedure Vital Signs Vital Signs: Temp Pulse Pulse Resp BP BP Pulse Ox 01/20/24 09:59 36.4 C L 83 16 100/62 96 01/20/24 09:40 36.3 C L 81 13 99/63 L 96 01/20/24 09:30 81 13 96/61 L 97 01/20/24 09:20 83 18 95/64 L 96 01/20/24 09:10 82 21 101/63 100 01/20/24 09:01 36.3 C L 87 16 94/56 L 99 01/20/24 05:56 36.3 C L 68 20 113/79 99 O2 Del Method O2 Flow Rate 01/20/24 09:59 Room Air 01/20/24 09:40 Room Air 01/20/24 09:30 Room Air 01/20/24 09:20 Room Air 01/20/24 09:10 Oxymask 4 01/20/24 09:01 Oxymask 6 01/20/24 05:56 Room Air Pain Intensity Left Knee: Pain Intensity: 3 Transfer of Care Handoff Completed per policy Notes Mental Status: alert / awake / arousable Patient Amnestic to Procedure: Yes Nausea / Vomiting: adequately controlled Pain: adequately controlled Airway Patency, RR, SpO2: stable & adequate BP & HR: stable & adequate Hydration State: stable & adequate Neuraxial Anesthesia: was administered and sensory block is resolving Anesthetic Complications: no major complications apparent and Pt Satisfied with anesthetic care
--- NOTE | 2024-01-20 11:04 | XRay Report ---
XR knee LT 1 or 2V routine CLINICAL HISTORY: Surgical Post Op COMPARISON: Left knee radiographs April 13, 2023. FINDINGS: Alignment of the total left knee arthroplasty is anatomic. There is no periprosthetic frac ture or unexpected radiopaque foreign body. There are skin mi. IMPRESSION: Expected findings following total left knee arthroplasty. ACT 112: Negative or not required by law. Electronically signed by: Zana Saldivar M.D. 01/20/2024 11:02 AM
[2024-01-20] MEDS: KETOROLAC TROMETHAMINE 15 MG/ML VIAL IV SCH (12:21)
[2024-01-20] MEDS: ASCORBIC ACID 500 MG TAB PO SCH (16:37)
[2024-01-20] MEDS: ceFAZolin 1000MG 1,000 MG/7.5 ML SYR IV SCH (16:37)
[2024-01-20] MEDS: TRANEXAMIC ACID / 0.7% NACL 1,000 MG/100 ML BAG IV SCH (16:39)
[2024-01-20] MEDS: DOCUSATE SODIUM 100 MG CAP PO SCH (20:56)
[2024-01-20] MEDS: SENNA 8.6 MG TAB PO SCH (20:57)
[2024-01-20] MEDS ORDERED: SENNA 8.6 MG TAB PO SCH (21:00)
[2024-01-21 06:41] LABS: Hematocrit (blood only) 31.5 % (42.0-52.0); Hemoglobin 10.9 g/dl (14.0-18.0); Mean Corpuscular Hemoglobin 30.4 pg (25.0-34.0); Mean Corpuscular Hgb Conc 34.6 g/dL (32.0-36.0); Mean Corpuscular Volume 87.7 fL (80.0-100.0); Mean Platelet Volume 10.4 fL (9.4-12.4); Platelet Count 222 K/uL (130-400); RDW Standard Deviation 41.1 fL (36.4-46.3); Red Blood Count 3.59 M/uL (4.70-6.10); White Blood Count 13.75 K/ul (4.8-10.8)
[2024-01-21 07:02] LABS: Calcium 8.7 mg/dl (8.6-10.3); Creatinine Clr Calc Pharmacy 65.5 ml/min; Potassium 4.1 mmol/L (3.5-5.1)
[2024-01-21 07:37] VITALS: BP 132/79; RESP 18; TEMP 98.2; O2SAT 99
--- NOTE | 2024-01-21 07:46 | Orthopedic Progress Note ---
Date of Service January 21, 2024 Assessment & Plan (1) Status post left knee replacement: Plan: 73-year-old gentleman postop day 1 from a left knee replacement. He is got multiple medical comorbidities. He is doing quite well. Pain is relatively well-controlled. No chest pain or shortness of breath. Hoping to get home today. Plan: 1. DVT prophylaxis including thigh-high teds, SCDs, and back on his Eliquis. Will use a prophylactic dose today and back on regular dose tomorrow. 2. PT/OT. Weight-bear as tolerated. Left total knee protocol. 3. Pain control doing okay with current pain regimen. 4. Disposition plan to discharge to home with some home health later today. (2) Paroxysmal atrial fibrillation: (3) HTN (hypertension): Admission and Anticipated Discharge Date Admission Date: January 20, 2024 Subjective 73-year-old gentleman postop day 1 from left knee replacement. He is doing pretty well. Did not get much sleep last night. Pains been pretty well- controlled. No chest pain or shortness of breath. Not feeling dizzy or lightheaded. Looking forward to going home today. Physical Exam Physical Exam: Physical examination was a pleasant middle-age male. He is sitting up in bed looks pretty comfortable. Examination of the left leg reveals the dressing be clean dry and intact he can dorsiflex and plantarflex his foot appropriately. He is neurologically intact. Respiratory: normal respiratory effort, lungs clear to auscultation Cardiovascular: RRR, no murmur, no edema Gastrointestinal (Abdomen): normal bowel sounds, soft, nontender, no hepatosplenomegaly Results & Data Vital Signs (Past 12 Hours) Vital Signs Temp Pulse Resp BP Pulse Ox O2 Del Method 01/21/24 07:35 36.8 C 74 18 132/79 99 Room Air 01/21/24 03:17 36.6 C 64 16 116/66 98 Room Air 01/20/24 23:28 36.8 C 77 16 104/57 L 96 Room Air Laboratory Results Hemoglobin is 10.9. Hematocrit is 31.5. Electrolytes are stable.
[2024-01-21] MEDS: oxyCODONE HCL IR 5 MG TAB (IMMEDIATE RELEASE) PO PRN (07:50)
[2024-01-21] MEDS: dexAMETHasone 10 MG in SYRINGE 0 ML IV SCH (07:53)
[2024-01-21] MEDS: METOPROLOL SUCC 25MG EXT REL TAB PO SCH (07:55)
[2024-01-21] MEDS: CALCIUM CARBONATE 1250MG TAB PO SCH (07:55)
[2024-01-21] MEDS: CHOLECALCIFEROL 25 MCG (1000 UNITS) TAB PO SCH (07:55)
[2024-01-21] MEDS: ATORVASTATIN 10 MG TAB PO SCH (07:55)
[2024-01-21] MEDS: MULTIVITAMIN TAB PO SCH (07:56)
[2024-01-21] MEDS: TAMSULOSIN HCL 0.4 MG CAP PO SCH (07:56)
[2024-01-21] MEDS: APIXABAN 2.5 MG TAB PO SCH (08:02)
[2024-01-21 11:25] VITALS: PULSE 83
--- NOTE | 2024-01-25 10:57 | Discharge Summary ---
Date of Service January 25, 2024 Admission HPI (Per Admitting) . The patient is a 73-year-old gentleman who I been following for the past couple years for left knee arthritis. He has been through extensive conservative treatment over the years which have become less successful over time. Pain has become more debilitating. He is an avid biker and having difficulty maintaining his biking due to the pain. Describes global pain in the knee. Increased with walking. No groin pain. Last shots did not help much. Admission Exam (Per Admitting) . Physical examination reveals a pleasant healthy-appearing middle-age male. Examination of the left knee reveal patient ambulates independently. Fairly minimal limp. Got varus alignment to his knee. Tender over the medial joint line. He is got some bony hypertrophy medially. Range of motion about 5 degre es short of full extension to 125 years of flexion. No particular pain with hip motion. There is no instability. Principal Diagnosis Same as "Discharge Diagnosis" noted below under Discharge Instructions. Discharge Data Procedures Performed Operation Date: 01/20/24 07:00 Actual Procedures p Left Total Knee Arthroplasty(Left) - Pipo Arguello MD Ordered Studies 01/20/24 05:00 US - OR guided needle placemen Routine Hospital Course (1) Status post left knee replacement: This is a 73 year old patient admitted on 01/20/24 and underwent total knee arthroplasty. He tolerated the procedure well and there were no complications. Transferred to the PACU post op and later to the orthopedic floor for further care. He was given ancef for antibiotic prophylaxis. He was also given JALEESA stockings, SCDs, and eliquis for DVT prophylaxis. Hemoglobin, hematocrit, and vital signs were monitored during his hospital stay and remained stable. Did not require any blood transfusions. There were no complications during his hospital stay. By post op day #1 the patient was tolerating a regular diet, pain was reasonably controlled with oral pain medicine, and he was participating in physical therapy. On post op day #1 the patient was discharged home and set up with home health care. He was given printed discharge instructions including prescriptions for extra strength tylenol, eliquis, cefadroxil, zofran, senokot, oxycodone, and flomax. Continue physical therapy, weight bearing as tolerated. Continue JALEESA stockings. Follow up approximately 2 weeks post op or sooner if there are problems or concerns. PG Care Time/CCT Total # of Minutes Spent Total Time Spent with Patient: : Discharge Plan Discharge Items Patient Disposition: Home - Home Health Services Reason For Visit: LEFT KNEE REPLACEMENT Discharge Diagnosis: Left Knee Replacement Activity: Per Instructions section Weightbearing: Full weightbearing Non-emergency contact: Surgeon Call non-emergency contact if: you have any medication questions Follow-up/Referrals: Harley Rizvi DO [Primary Care Provider] - Diet: Regular Addtl Attending Provider Instructions: ACTIVITY RECOMMENDATIONS: Diet: * You may resume previous diet. Physical Therapy: * You will go to physical therapy three times each week for four to six weeks after your surgery in order to regain your knee range of motion and to retrain your knee to work properly. * It is just as important to make sure you are getting your knee perfectly straight as it is to regain your knee bend. * Taking a pain pill an hour before therapy can help you have a more productive and comfortable therapy session. Home Exercise: * You were shown a series of exercises (heel props, heel slides, etc.) in the hospital. Do these exercises three to four times each day including the exercises you were shown in physical therapy. Walking: * Get up and walk several times each day. For the first four weeks, try not to stand or walk for more than one hour at a time. If you do stand or walk for more than one hour, you will not hurt anything, but your knee and leg will likely swell. * As you feel comfortable, you may change from the walker or crutches to a cane and then to independent walking. MEDICATIONS: New Medicine: * You will likely be taking one or more of these medications: 1. Oxycodone - A quick and shorter-acting pain medication. Take one to two tablets every six hours to lessen your pain. 2. Eliquis - Thins your blood to lessen the chance of forming a blood clot. * The most common side effects of pain medicine and iron are nausea and constipation. If nausea or constipation is too much of a problem or if you have any questions about your new medicines or doses, call [facility] at . We will try to help you manage these issues. "VERY IMPORTANT TO READ AND REVIEW" Pain: * The immediate post-operative period after knee replacement surgery is often quite painful. * You are given a prescription for pain medicine. You should take it, as directed, when you need it, especially before physical therapy and before going to bed. Pain that interferes with sleep is very common and can last several months. * You will likely need pain medicine for the first four to six weeks. It will not stop all of the pain. The pain will lessen and as you feel better, you may change to milder pain medicine such as Tylenol. * The most common side effects of pain medicine are nausea and constipation, so don't take more than you need. SPECIAL CARE INSTRUCTIONS: TEDs/Elastic Stockings: * The white elastic stockings help limit swelling and prevent blood clots from forming in your legs. The more you wear them, the more they work. * Wear them for six weeks after knee replacement surgery and four weeks after partial knee replacement. Incision Site Care: * Remove dressing postoperative day 2 and then shower. Keep direct shower pressure off the incision site. * After showering, cover mi with dry gauze and change daily or more frequently if the dressing is getting saturated with drainage. * Use the JALEESA stockings to hold dressing in place. DO NOT apply tape on the skin. * May completely stop using bandage if wound is dry and no drainage * Zebulon are removed between 2 and 3 weeks post-op. If your follow-up appointment is made before 2 weeks, please have your appointment re- scheduled. It is too early to remove the mi. Prevention of Infection: * Take antibiotics one hour before any dental cleaning, dental work, urological procedure, gastrointestinal procedure or any invasive surgery in order to prevent your new joint from getting infected. * You may get the antibiotics from the doctor performing the procedure or you may call our office at [phone] before and we will call in a prescription to the pharmacy of your choice. Things to Watch For: * Drainage from the incision site that occurs more than one week after your surgery. * Severely increased knee/leg pain or swelling. * Increased redness at the incision site. * Fever above 102 degrees Fahrenheit. * Unusual chest pain or shortness of breath. * Unusual pain or burning with urination. Call [facility] at [phone] with any of the above problems or if you have any questions about your medicines or recovery. FOLLOW UP VISIT: Make an appointment to see your doctor for approximately two weeks after surgery for a progress check and staple removal by calling the office at [phone]. Pending Studies at Discharge: No Stand-Alone Forms: My [facility] Medications and DC Order Prescriptions: Continued atorvastatin 10 mg tablet 10 mg PO QAM Qty: 90 3RF oxycodone 5 mg tablet 5 - 10 mg PO Q6 PRN (Reason: pain) Qty: 40 0RF Rx Instructions: Take as needed for pain ondansetron 4 mg tablet,disintegrating 4 mg PO Q8 PRN (Reason: nausea) Qty: 20 1RF Rx Instructions: Take as needed for nausea sennosides [Senokot] 8.6 mg tablet 8.6 mg PO BID 14 Days Qty: 28 0RF Rx Instructions: Take two times a day to prevent/treat constipation acetaminophen [Tylenol Extra Strength] 500 mg tablet 1,000 mg PO TID 30 Days Qty: 180 0RF Rx Instructions: Take 3 times per day to lessen pain. cefadroxil 500 mg capsule 500 mg PO BID 7 Days Qty: 14 0RF Rx Instructions: Take 1 cap twice a day to prevent infection tamsulosin [Flomax] 0.4 mg capsule 0.4 mg PO DAILY Qty: 7 0RF Rx Instructions: Begin night BEFORE surgery to prevent urinary retention metoprolol succinate 25 mg tablet extended release 24 hr 25 mg PO QAM cholecalciferol (vitamin D3) 1,000 unit Tablet 1,000 unit PO QAM calcium carbonate [Calcium 600] 600 mg calcium (1,500 mg) Tablet 600 mg PO QAM Eliquis 5 mg tablet 5 mg PO BID Admission Data Admit Date/Time: 01/20/24 09:06 Attending Provider: Pipo Arguello Admit Provider: Pipo Arguello Primary Care Provider: Harley Rizvi Other Providers: [facility] Other Interventions: Discharge Summary Assessment (RN) Last Done: 01/21/24 11:17
== END 2024-01-21 12:02 | disposition home health service (06) ==
LOC: 3E 05:15 → ASU 05:15
DX: I10 Essential (primary) hypertension; C61 Malignant neoplasm of prostate; Z88.8 Allergy status to other drugs, medicaments and biological substances; E78.5 Hyperlipidemia, unspecified; M17.12 Unilateral primary osteoarthritis, left knee; Z79.01 Long term (current) use of anticoagulants; M25.762 Osteophyte, left knee; I48.0 Paroxysmal atrial fibrillation; I35.1 Nonrheumatic aortic (valve) insufficiency; Z79.899 Other long term (current) drug therapy